=== PATIENT | male | born 1990 | race American Indian/Alaskan Native ===

== ENCOUNTER 2020-08-15 14:33 | Emergency (ER) | payer SELFPAY ==
--- NOTE | 2020-08-15 15:20 | Emergency Department Report ---
Chief Complaint: Urogenital-Male Stated Complaint: POSS URINARY TRACT Time Seen by Provider: 08/15/20 15:17 - HPI History of Present Illness: Patient is a 30-year-old male who put Pina on his penis and is now complaining of irritation. He has no discharge. No abdominal pain. No testicular pain. - ROS Review of Systems: Penile irritation after using Pina - Exam Vital Signs: Vital signs are normal as documented manually by the RN Physical Exam: Alert and oriented x4. Abdomen soft nontender. No back pain. Skin irritation of the penile shaft after using Pina. S1-S2. Abdomen soft nontender. Lungs clear to auscultation. MSE screening note: Focused history and physical exam performed. Due to findings the following was ordered: Patient Patient discussed with doctor:: ABBIE BROWN ED Disposition for MSE Disposition: MED SCREENING EXAM-LEFT Is pt being admited?: No Does the pt Need Aspirin: No Condition: Stable Referrals: SADIA MURILLO MD [Staff Physician] - 3-5 Days Time of Disposition: 15:20
== END 2020-08-15 15:20 | disposition left against medical advice (07) ==
LOC: ED 14:33
DX: N39.0 Urinary tract infection, site not specified (principal); Z53.21 Procedure and treatment not carried out due to patient leaving prior to being seen by health care provider